=== PATIENT | female | born 1990 | race American Indian/Alaskan Native ===

== ENCOUNTER 2017-03-24 21:53 | Emergency (ER) | payer SELFPAY ==
[2017-03-24 23:27] LABS: Bilirubin,Urine NEG (Negative); Blood,Urine NEG (Negative); Ketones,Urine NEG (Negative); Leukocyte Esterase,Urine LG (Negative); Nitrite,Urine NEG (Negative); Protein,Urine <15 mg/dL mg/dL (Negative); Urobilinogen,Urine < 2.0 mg/dL (<2.0)
--- NOTE | 2017-03-25 01:01 | Ultrasound Report ---
FINAL REPORT PROCEDURE: Ob ultrasound TECHNIQUE: Real-time transabdominal sonography of the uterus, placenta, amniotic fluid, adnexa, and fetus was performed with image documentation. Detailed anatomic examination was performed. Measurements were obtained to determine age/size. M-mode Doppler was used to document heartbeat. CPT 11953 HISTORY: / CRAMPING COMPARISON: No prior studies are available for comparison. FINDINGS: There is a single living intrauterine gestation visualized currently in the vertex presentation with a heart rate of 153 beats per minute. Cervix length 3.1 centimeter. The amount of amniotic fluid subjectively appears normal. The placenta is grade 0 and located posteriorly. No evidence of placenta previa or abruption. The bladder and stomach are visualized. spine is unremarkable however axial images of the cervical spine for not obtained.. The kidney showed no abnormalities. On image 10 series 1 the cord insertion is visualized. Posterior to the cord insertion there is additional soft tissue density. This could be an artifact from an adjacent loop of bowel. I cannot exclude gastroschisis. Four-chamber view of the heart is limited although grossly unremarkable. Facial features are not well demonstrated. Intracranial anatomy is not clearly identified. Extremities were not studied in detail. MEASUREMENTS: BPD: 4.0 centimeter equal 18 week 2 days HC: 15.4 centimeter 18 week 3 day AC: 14.1 centimeter equals 19 week 3 days FL: 2.9 centimeter equals 19 weeks 0 days Mean Gestational Age (composite criteria): 18 weeks 6 days Estimated Weight: 275 grams. Interval growth: No prior studies. Estimated Due Date (earliest scan): According to today's study 08/20/2017 1.5 weeks. IMPRESSION: Single living intrauterine gestation visualized currently in the vertex presentation. The amount of amniotic fluid appears normal. Visualization of the anatomy is limited. Intracranial contents, extremities, facial features and four-chamber view of the heart and cervical spine are not well defined.. Possible abnormality in the region of the cord insertion. I cannot exclude gastroschisis. Follow-up exam should include visualization of these anatomic regions. Average sonographic age by today's study 18 weeks 6 days placing EDC at 08/20/2017 1.5 weeks.
--- NOTE | 2017-03-25 01:17 | Emergency Department Report ---
HPI - General Chief Complaint: Abdominal Pain Time Seen by Provider: 03/25/17 01:15 - HPI HPI: This is a 26-year-old Afro-[place] female who presents to the emergency department with complaint of a 4-5 day history of vaginal itching and burning. The patient is about 19 weeks that she 3 P G 1 with one previous and one live child. She is from [facility] and has an SEWING INSPECTOR in [place] and has appointment on the 13th of this month. She denies any vaginal bleeding, vaginal discharge, back pain, fever, nausea, vomiting or any significant abdominal pain. She has not taken anything or used any creams for her symptoms prior to presentation. She otherwise denies any past medical history. ED Past Medical Hx - Past Medical History Previous Medical History?: No - Surgical History Past Surgical History?: No - Social History Smoking Status: Never Smoker Substance Use Type: None - Medications Home Medications: Home Medications Medication Instructions Recorded Confirmed Last Taken Type Miconazole 2% [Monistat] 1 applicator VG QHS #1 tube 03/25/17 Unknown Rx ED Review of Systems ROS: Stated complaint: ITCHING,BURNING, VAG AREA Other details as noted in HPI Comment: All other systems reviewed and negative Constitutional: denies: chills, fever Eyes: denies: eye pain, eye discharge, vision change ENT: denies: ear pain, throat pain Respiratory: denies: cough, shortness of breath, wheezing Cardiovascular: denies: chest pain, palpitations Gastrointestinal: denies: nausea, vomiting Genitourinary: other (vaginal itching). denies: hematuria, discharge Musculoskeletal: denies: back pain, joint swelling, arthralgia Skin: denies: rash, lesions Neurological: denies: headache, weakness, paresthesias Physical Exam - Physical Exam Vital Signs: Vital Signs 03/24/17 22:03 Temperature 98.5 F Pulse Rate 91 H Respiratory 20 Rate Blood Pressure 112/75 O2 Sat by Pulse 100 Oximetry Physical Exam: GENERAL: The patient is well-developed well-nourished. HEENT: Normocephalic. Atraumatic. Extraocular motions are intact. Patient has moist mucous membranes. NECK: Supple. Trachea is midline. CHEST/LUNGS: Clear to auscultation. There is no respiratory distress noted. HEART/CARDIOVASCULAR: Regular. There is no tachycardia. There is no gallop rub or murmur. ABDOMEN: Abdomen is soft, nontender. Patient has normal bowel sounds. There is no abdominal distention. SKIN: Skin is warm and dry. : There is thick white discharge seen in the vaginal vault. There is some mild redness and irritation seen to the vagina and labia that appears consistent with a candidal infection. NEURO: The patient is awake, alert, and oriented. The patient is cooperative. The patient has no focal neurologic deficits. The patient has normal speech and gait. MUSCULOSKELETAL: There is no tenderness or deformity. There is no limitation range of motion. There is no evidence of acute injury. ED Course Vital Signs 03/24/17 22:03 Temperature 98.5 F Pulse Rate 91 H Respiratory 20 Rate Blood Pressure 112/75 O2 Sat by Pulse 100 Oximetry ED Medical Decision Making - Radiology Data Radiology results: report reviewed HISTORY: / CRAMPING COMPARISON: No prior studies are available for comparison. FINDINGS: There is a single living intrauterine gestation visualized currently in the vertex presentation with a heart rate of 153 beats per minute. Cervix length 3.1 centimeter. The amount of amniotic fluid subjectively appears normal. The placenta is grade 0 and located posteriorly. No evidence of placenta previa or abruption. The bladder and stomach are visualized. spine is unremarkable however axial images of the cervical spine for not obtained.. The kidney showed no abnormalities. On image 10 series 1 the cord insertion is visualized. Posterior to the cord insertion there is additional soft tissue density. This could be an artifact from an adjacent loop of bowel. I cannot exclude gastroschisis. Four-chamber view of the heart is limited although grossly unremarkable. Facial features are not well demonstrated. Intracranial anatomy is not clearly identified. Extremities were not studied in detail. MEASUREMENTS: BPD: 4.0 centimeter equal 18 week 2 days HC: 15.4 centimeter 18 week 3 day AC: 14.1 centimeter equals 19 week 3 days FL: 2.9 centimeter equals 19 weeks 0 days Mean Gestational Age (composite criteria): 18 weeks 6 days Estimated Weight: 275 grams. Interval growth: No prior studies. Estimated Due Date (earliest scan): According to today's study 08/20/2017 1.5 weeks. IMPRESSION: Single living intrauterine gestation visualized currently in the vertex presentation. The amount of amniotic fluid appears normal. Visualization of the anatomy is limited. Intracranial contents, extremities, facial features and four-chamber view of the heart and cervical spine are not well defined.. Possible abnormality in the region of the cord insertion. I cannot exclude gastroschisis. Follow-up exam should include visualization of these anatomic regions. Average sonographic age by today's study 18 weeks 6 days placing EDC at 08/20/2017 1.5 weeks. - Medical Decision Making 26-year-old female presents to the emergency department with a complaint of vaginal itching and some irritation. Her labs are mostly unremarkable. There is no significant urinary tract infection. On physical exam the patient does appear to have a vaginal candidal infection. An ultrasound was done that shows a live intrauterine at about 18 weeks. There is the possibility of a small abnormality seen at cord insertion that could be consistent with gastrichis. However the patient is having no vaginal bleeding, significant abdominal pain and the is viable. This does not appear to be any acute or emergent finding. The patient will be prescribed Monistat 7 to be used for her candidal infection. However she is going to call her SEWING INSPECTOR later today and make sure that it is appropriate to use or if they recommend a different medication. Vital signs stable throughout her ED course. She will return to the ER with any vaginal bleeding, sharp abdominal pains or any acute process. Critical Care Time: No Critical care attestation.: If time is entered above; I have spent that time in minutes in the direct care of this critically ill patient, excluding procedure time. ED Disposition Clinical Impression: Vaginal yeast infection Qualifiers: Weeks of gestation: 18 weeks Qualified Code(s): Z3A.18 - 18 weeks gestation of Disposition: DISCHARGED TO HOME OR SELFCARE Is pt being admited?: No Condition: Stable Instructions: (ED), Vulvovaginal Candidiasis (ED) Additional Instructions: Please call your SEWING INSPECTOR service tomorrow and make sure that they are in agreement with the use of the Monistat for your yeast infection. Otherwise, follow-up with your SEWING INSPECTOR service on the as previously scheduled. Go to the closest emergency department with any development of abdominal pain, intractable fever or vomiting, vaginal bleeding, or any acute distress. Prescriptions: Miconazole 2% [Monistat] 1 applicator VG QHS #1 tube Time of Disposition: 01:38
[2017-03-25 01:35] VITALS: BP 123/77
== END 2017-03-25 02:31 | disposition home or self-care (01) ==
LOC: ED 21:53
DX: O98.812 Other maternal infectious and parasitic diseases complicating pregnancy, second trimester (principal); B37.3 Candidiasis of vulva and vagina; Z3A.18 18 weeks gestation of pregnancy
CPT/HCPCS: 76805; 81001; 81025; 99284